=== PATIENT | female | born 1985 | race Caucasian/White ===

== ENCOUNTER 2016-08-02 13:45 | Emergency (ER) | payer OTHER ==
[~2016-08-02] VITALS: Ht 157.5 cm; Wt 48.0 kg
[2016-08-02 13:51] VITALS: BP 135/79; PULSE 94; RESP 20; TEMP 98; O2SAT 97
--- NOTE | 2016-08-02 14:36 | RADRPT ---
EXAM DATE/TIME: 08/02/2016 14:31 CORRECTION Corrected on: August 02, 2016; [facility] COMPARISON: No previous studies available for comparison. INDICATIONS : Right shoulder pain post fall 3 days ago MEDICAL HISTORY : Carcinoma, bone. SURGICAL HISTORY : Bone graft in proximal humerus ENCOUNTER: Initial ACUITY: 3 days PAIN SCORE: 7/10 LOCATION: Right entire shoulder FINDINGS: Multiple view examination of the right shoulder demonstrates fracture of the mid/distal shaft of the clavicle. Humerus is intact. The glenohumeral and acromioclavicular joints are maintained. There is normal range of motion between internal and external rotation. Bony mineralization is normal. CONCLUSION: Mid to distal right clavicle fracture. Jorgito Solomon MD on August 02, 2016 at 14:34 Board Certified Radiologist. This report was verified electronically. Jorgito Solomon MD on August 02, 2016 at 14:52 Board Certified Radiologist. This report was verified electronically.
[2016-08-02] MEDS ORDERED: HYDR-3533 PO (14:45)
--- NOTE | 2016-08-02 14:52 | PD ---
HPI Chief Complaint: Musculoskeletal Complaint Time Seen by Provider: 14:50 Travel History International Travel<30 days: No Contact w/Intl Traveler<30days: No Traveled to known affect area: No History of Present Illness HPI 31-year-old female presents to the emergency department for evaluation of right shoulder pain status post trip and fall that occurred 5 days ago. States that she was [place] and tripped over a pine landing onto her right shoulder. Denies head trauma or loss of consciousness. States that she's had pain to the anterior shoulder and over her clavicle. States that the pain is aggravated with trying to lift her shoulder. Denies any alleviating factors. States it does feel better to hold her arm close to her side without moving it. 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 Denies . No other complaints. PFSH Past Medical History Respiratory: Yes (ASTHMA) ?: Not LMP: 07/02/16 Social History Alcohol Use: No Tobacco Use: Yes Substance Use: No Allergies-Medications (Allergen,Severity, Reaction): Uncoded Allergies: PAPER TAPE (Allergy, Mild, RASH, 08/02/16) Reported Meds & Prescriptions Reported Meds & Active Scripts Active Lortab (Hydrocodone-Acetaminophen) 5-325 Mg Tab 1 Tab PO Q6H PRN Review of Systems Except as stated in HPI: all other systems reviewed are Neg Physical Exam Narrative GENERAL: Well-nourished and well-developed pleasant female patient in no acute distress. SKIN: Warm and dry. HEAD: Normocephalic and atraumatic. EYES: No injection, drainage, or hyphema noted. PERRLA. EOMI. ENT: No nasal drainage noted. Oropharynx is clear. NECK: Supple and the trachea is midline. CARDIOVASCULAR: Regular rate and rhythm. RESPIRATORY: Breath sounds are equal bilaterally with no accessory muscle use, wheezing, rhonchi, or crackles. MUSCULOSKELETAL: Right clavicle with swelling and tenderness to palpation. Unable to lift right shoulder secondary to pain. 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 No skin tenting. No cyanosis or ecchymosis is present throughout the upper and lower extremities. Patient has full range of motion without any signs of neurovascular compromise. NEUROLOGICAL: Awake, alert, and oriented. Normal speech and gait. Cranial nerves are grossly intact. Data Data Last Documented VS Vital Signs Date Time Temp Pulse Resp B/P Pulse Ox O2 Delivery O2 Flow Rate FiO2 08/02/16 13:51 98.0 94 20 135/79 97 Room Air Orders Shoulder, Complete (>2vws) (08/02/16 14:05) Splint Or Brace Apply/Monitor (08/02/16 14:50) MDM Medical Decision Making Medical Screen Exam Complete: Yes Emergency Medical Condition: Yes Differential Diagnosis Clavicle fracture versus ligamentous injury versus shoulder contusion Narrative Course 31-year-old female presents to the emergency department for evaluation of right shoulder injury. Patient is afebrile, vital signs are stable. X-ray imaging shows a mid to distal right clavicle fracture. Patient will be placed in a sling and given a prescription for pain medicine. Instructed to follow-up with orthopedist. Patient verbalizes understanding and agreement with treatment plan. Diagnosis Primary Impression: Closed right clavicular fracture Qualified Code: S42.024A - Closed nondisplaced fracture of shaft of right clavicle, initial encounter Referrals: Orthopedist Patient Instructions: Clavicle Fracture (ED), General Instructions Additional Instructions: Sling right arm. Apply ice for 20 minutes on, 20 minutes off. Take medication as prescribed with food and a full glass of water. Do not take Lortab with alcohol or while driving. Follow-up with an orthopedist. Return to the ED for any acute worsening of symptoms. Med/Other Pt SpecificInfo: Prescription(s) given Scripts Hydrocodone-Acetaminophen (Lortab)5-325 Mg Tab1 Tab PO Q6H PRN (PAIN GREATER THAN 6) #20 TAB Ref 0 Prov:Willie Wilkerson MD 08/02/16 Disposition: 01 DISCHARGE HOME Condition: Stable Nancy Londono Aug 02, 2016 14:52
== END 2016-08-02 15:16 | disposition home or self-care (01) ==
LOC: NEPB 13:45
DX: S42.001A Fracture of unspecified part of right clavicle, initial encounter for closed fracture (principal); W01.0XXA Fall on same level from slipping, tripping and stumbling without subsequent striking against object, initial encounter; J45.909 Unspecified asthma, uncomplicated; Z72.0 Tobacco use
CPT/HCPCS: 73030; 99283